=== PATIENT | female | born 1985 | race African-American/Black ===

== ENCOUNTER 2025-09-25 09:17 | Emergency (ER) | payer MEDICAID ==
[2025-09-25 10:24] LABS: #Basophils 0.04 10x3/uL (0.0-0.2); #Eosinophils Less than 0.03 10x3/uL (0.0-0.5); #Monocytes 0.51 10x3/uL (0.0-1.1); #Neutrophils 6.61 10x3/uL (1.5-8.4); %Basophils 0.4 % (0.0-2.0); %Eosinophils 0.1 % (0.0-6.0); %Lymphocytes 20.9 % (18.0-47.0); %Monocytes 5.6 % (0.0-10.0); %Neutrophils 72.5 % (40.0-75.0); Hematocrit 40.6 % (34.9-44.5); Hemoglobin 13.3 g/dL (12.0-15.5); Mean Corpuscular Hemoglobin 31.4 pg (27.0-33.0); Mean Corpuscular Volume 95.8 fL (81.6-98.3); Platelet Count 234 10x3/uL (150-450); Red Blood Cell (RBC) Count 4.24 10x6/uL (3.90-5.03); White Blood Cell (WBC) Count 9.13 10x3/uL (3.5-10.5)
[2025-09-25] MEDS ORDERED: levETIRAcetam 500 MG (5 mL) VIAL ONE (10:43)
[2025-09-25 10:46] LABS: BHCG - Serum Negative (NEGATIVE); Pregs Control Background? CLEAR/WHITE (CLR/WHITE); Pregs Control Bar Appear? YES (CONTROL BAR)
[2025-09-25 10:59] LABS: ALT (SGPT) 11 U/L (Less than 34); AST (SGOT) 18 U/L (11-34); Albumin 4.2 g/dL (3.1-4.5); Alkaline Phosphatase 51 U/L (40-110); Anion Gap 13 mmol/L (10-20); BUN (Urea Nitrogen) 14 mg/dL (7.0-18.7); Bilirubin, Total 0.3 mg/dL (0.3-1.2); Calc. Creatinine Clearance 0 mL/min (70-130); Calcium 9.5 mg/dL (7.8-10.44); Carbon Dioxide 19 mmol/L (22-29); Chloride 114 mmol/L (98-107); Globulin 3.3 g/dL (2.4-3.5); Glucose 125 mg/dL (70-105); Potassium 3.7 mmol/L (3.5-5.1); Sodium 142 mmol/L (136-145)
[2025-09-25 11:02] LABS: Acetaminophen Less than 10 mcg/mL (Less than 10); Lipase 13 U/L (8-78); Magnesium 1.7 mg/dL (1.6-2.6); Salicylate Less than 8.0 mg/dL (Less than 8.0)
[2025-09-25 11:08] LABS: Troponin I Less than 0.010 ng/mL (< 0.028)
== END 2025-09-25 12:49 | disposition home or self-care (01) ==
LOC: CSHERS 09:17
DX: R53.83 Other fatigue (principal); I10 Essential (primary) hypertension; F12.90 Cannabis use, unspecified, uncomplicated; Z91.148 Patient's other noncompliance with medication regimen for other reason; Z55.6 Problems related to health literacy
CPT/HCPCS: 36415; 36416; 70450; 71045; 80053; 80177; 80307; 83690; 83735; 84484; 84703; 85025; 87428; 93005; 96374; J1953